=== PATIENT | female | born 1960 | race Caucasian/White ===

== ENCOUNTER 2017-07-16 13:56 | Emergency (ER) ==
[2017-07-16 14:06] VITALS: BP 96/66; TEMP 97.6; BMI 24.3
[2017-07-16] MEDS ORDERED: ULTRAM PO STA (14:13)
--- NOTE | 2017-07-16 14:20 | ED.PDOC ---
General ED Provider: Dr. KATHERINE NICOLE Chief Complaint: Foot Pain/Injury Stated Complaint: RIGHT FOOT AND ANKLE INJURY Time Seen by Physician: 14:19 ([place] [facility] NO OTHER INJURY OFFERED) Mode of Arrival: Walk-In Information Source: Patient Exam Limitations: No limitations Primary Care Provider: JOCELYN OVALLE Nursing and Triage Documentation Reviewed and Agree: Yes Reviewed sepsis parameters & appropriate labs ordered?: Yes System Inflammatory Response Syndrome: Not Applicable Sepsis Protocol: For patient's 13 years and over: Temp is 96.8 and below OR 101 and greater Pulse >90 BPM Resp >20/minute Acutely Altered Mental Status Are patient's symptoms suggestive of a new infection, such as: -Pneumonia -Skin, Soft Tissue -Endocarditis -UTI -Bone, Joint Infection -Implantable Device -Acute Abdominal Infection -Wound Infection -Meningitis -Blood Stream Catheter Infection -Unknown System Inflammatory Response Syndrome: Not Applicable Musculoskeletal Complaint Exam - Ankle/Foot Complaint/Exam Location of Injury: Reports: Right, Ankle, Foot Mechanism of Injury: Reports: Trauma (FALL ) Onset/Duration: 1 HR AGO Symptoms Are: Reports: Still present Onset of Pain: Reports: Immediate Initial Severity: Moderate Current Severity: Moderate Location: Reports: Discrete (RIGHT FOOT AND ANKLE RIGHT LATERL ANKLE ) Character: Reports: Sharp (FELT A POP AT ONSET) Alleviating: Reports: Rest, Position Aggravating: Reports: Movement, Weight bearing Able to Bear Weight: No Associated Signs and Symptoms: Reports: Swelling, Bruising. Denies: Redness, Fever, Weakness, Numbness, Tingling Gout Risk Factors: Reports: >40 years old Related Surgical History: Reports: None Lower Extremity Findings: Present: Swelling, Ecchymosis, Abnormal contour Achilles Tendon Abnormality: No Tenderness: Present: Lateral malleolus Limited Range of Motion: Present: Inversion, Eversion Differential Diagnosis: Closed Fracture Review of Systems - Review Of Systems Constitutional: Reports: No symptoms Eyes: Reports: No symptoms Ears, Nose, Mouth, Throat: Reports: No symptoms Respiratory: Reports: No symptoms Cardiac: Reports: No symptoms GI: Reports: No symptoms : Reports: No symptoms Musculoskeletal: Reports: Joint pain (ANKLE RIGHT) Skin: Reports: No symptoms Neurological: Reports: No symptoms Endocrine: Reports: No symptoms Hematologic/Lymphatic: Reports: No symptoms All Other Systems: Reviewed and Negative Past Medical History - Past Medical History Previously Healthy: Yes Endocrine: Reports: Dyslipidemia Cardiovascular: Reports: None Respiratory: Reports: None Hematological: Reports: None Gastrointestinal: Reports: None Genitourinary: Reports: None Neuro/Psych: Reports: None Musculoskeletal: Reports: None Cancer: Reports: None Last Menstrual Period: NA - Surgical History General Surgical History: Reports: Hysterectomy, Cholecystectomy - Family History Family History: Reports: Unknown - Social History Smoking Status: Heavy tobacco smoker, Current every day smoker Hx Substance Use: Yes Alcohol Screening: None - Immunizations Tetanus Shot up to Date: Yes Physical Exam - Physical Exam Appearance: Well-appearing, No pain distress, Well-nourished Eyes: MAGNOLIA, EOMI, Conjunctiva clear ENT: Ears normal, Nose normal, Oropharynx normal Respiratory: Airway patent, Breath sounds clear, Breath sounds equal, Respirations nonlabored Cardiovascular: RRR, Pulses normal, No rub, No murmur GI/: Soft, Nontender, No masses, Bowel sounds normal, No Organomegaly Musculoskeletal: Limited ROM (RIGHT LIMITED ROM EDEMA AND BRUSED RIGHT ANKLE) Skin: Warm, Dry, Normal color Neurological: Sensation intact, Motor intact, Reflexes intact, Cranial nerves intact, Alert, Oriented Psychiatric: Affect appropriate, Mood appropriate Critical Care Note - Critical Care Note Total Time (mins): 0 Course - Course Orders, Labs, Meds: Orders Category Date Time Status CRUTCHES [ED CRUTCHES] .ONCE EMERGENCY 07/16/17 15:23 Active Tramadol HCl [Ultram] MEDS 07/16/17 14:13 Discontinued 50 mg PO ONCE STA ANKLE, RIGHT MIN 3 VIEWS Stat RADS 07/16/17 14:12 Completed FOOT, RIGHT 3 VIEWS Stat RADS 07/16/17 14:12 Completed Medications Discontinued Medications Generic Name Dose Route Start Last Admin Trade Name Freq PRN Reason Stop Dose Admin Tramadol HCl 50 mg 07/16/17 14:13 07/16/17 14:19 Ultram PO 07/16/17 14:14 50 mg ONCE STA Administration Vital Signs: Temp Pulse Resp BP Pulse Ox 07/16/17 14:03 97.6 F 95 H 22 96/66 98 Departure - Departure Time of Disposition: 15:59 Disposition: HOME SELF-CARE Discharge Problem: Right ankle sprain Qualifiers: Encounter type: initial encounter Involved ligament of ankle: unspecified ligament Qualified Code(s): S93.401A - Sprain of unspecified ligament of right ankle, initial encounter Sprain of foot, right Qualifiers: Encounter type: initial encounter Qualified Code(s): S93.601A - Unspecified sprain of right foot, initial encounter Foot fracture, right Qualifiers: Encounter type: initial encounter Fracture type: closed Qualified Code(s): S92.901A - Unspecified fracture of right foot, initial encounter for closed fracture Instructions: Ankle Sprain (ED), Foot Fracture in Adults (ED) Condition: Good Pt referred to PMD for follow-up: Yes IPMP verified?: No Additional Instructions: Please call your Family Physician as soon as possible to schedule a follow-up appointment. Prescriptions: Hydrocodone/Acetaminophen [[place] 10-325 Tablet] 1 each PO Q8HR #14 tablet Allergies/Adverse Reactions: Allergies peach Adverse Reaction (Verified 07/16/17 14:02) pseudoephedrine HCl [From Sudafed] Adverse Reaction (Unverified 07/16/17 14:02) PATIENT REPORTS SHE CAN NOT TAKE THIS DUE TO "ADDICTION HISTORY" venom-honey bee [bee venom (honey bee)] Adverse Reaction (Verified 07/16/17 14: 02) Home Medications: Ambulatory Orders Hydrocodone/Acetaminophen [[place] 10-325 Tablet] 1 each PO Q8HR #14 tablet Hydroxyzine Pamoate [Vistaril] 25 mg PO DAILY 07/16/17 Disposition Discussed With: Patient
[2017-07-16] MEDS ORDERED: NORCURON IVP STA (14:55)
--- NOTE | 2017-07-16 15:34 | DI ---
Exam: Four views of the right foot. Comparison: Right foot radiographs performed on 09/01/2013. Reason for exam: Injury. FINDINGS: No obvious fracture or malalignment. The joint spaces appear well maintained. The talar dome is intact. There is no abnormal widening of the medial or lateral clear space. Small osseous f ragment is seen adjacent to the midfoot and talus on the lateral view. Impression: 1. Small osseous densities are seen adjacent to the midfoot and talus on the lateral view. Imaging findings are most likely degenerative. Cannot completely rule out small avulsion fracture. Recommen d correlation with the site of patient's pain. 2. Otherwise, no acute fracture or dislocation is seen in the right ankle.
--- NOTE | 2017-07-16 15:37 | DI ---
Exam: Three views of the right foot. Comparison: 09/01/2013. Reason for exam: Injury. FINDINGS: Tiny osseous densities seen adjacent to the right fifth metatarsal. There are tiny osseou s densities adjacent to the midfoot and talus on the lateral view. Otherwise, no suspicious appearin g osseous findings are seen within the right foot. The joint spaces appear well maintained. Impression: 1. Osseous density adjacent to the right fifth metatarsal likely represents a small avulsion fractur e. 2. Osseous densities adjacent to the midfoot and talus on the lateral view may be degenerative but m ay also represent an avulsion fracture. Recommend correlation with the site of patient's pain.
== END 2017-07-16 15:39 | disposition home or self-care (01) ==
LOC: ED 13:56
DX: S92.901A Unspecified fracture of right foot, initial encounter for closed fracture (principal); S93.401A Sprain of unspecified ligament of right ankle, initial encounter; W19.XXXA Unspecified fall, initial encounter; F17.210 Nicotine dependence, cigarettes, uncomplicated
CPT/HCPCS: 99283